=== PATIENT | female | born 1960 | race Caucasian/White ===

== ENCOUNTER → 2016-06-28 | Outpatient (CLI) | payer MEDICARE ==
[2016-06-28 11:45] LABS: HEMATOCRIT 41.8 % (36.0-47.0); HEMOGLOBIN 13.7 g/dL (12.0-15.5); HGB HCT DIFFERENCE -0.7; MEAN CORPUSCULAR HEMOGLOBIN 30.5 pg (27.0-33.4); MEAN CORPUSCULAR HGB CONC 32.9 g/dL (32.0-36.0); MEAN CORPUSCULAR VOLUME 93 fl (80-97); RED CELL DISTRIBUTION WIDTH 15.2 % (11.5-14.0); WHITE BLOOD COUNT 19.7 10^3/uL (4.0-10.5)
[2016-06-28 12:08] LABS: ALANINE AMINOTRANSFERASE 50 U/L (9-52); ALBUMIN 3.8 g/dL (3.5-5.0); ALKALINE PHOSPHATASE 109 U/L (38-126); ANION GAP 16 (5-19); ASPARTATE AMINO TRANSFERASE 28 U/L (14-36); BILIRUBIN,DIRECT 0.3 mg/dL (0.0-0.4); BILIRUBIN,TOTAL 0.4 mg/dL (0.2-1.3); BLOOD UREA NITROGEN 12 mg/dL (7-20); CALCIUM 10.1 mg/dL (8.4-10.2); CARBON DIOXIDE 24 mmol/L (22-30); CHLORIDE 102 mmol/L (98-107); CREATININE RESULT 0.66 mg/dL (0.52-1.25); GLUCOSE 143 mg/dL (75-110); POTASSIUM 3.3 mmol/L (3.6-5.0); SODIUM 142.3 mmol/L (137-145)
[2016-06-28 12:26] LABS: BASOPHILS % (MANUAL) 0 % (0-2); EOSINOPHILS % (MANUAL) 0 % (0-6); LYMPHOCYTES % (MANUAL) 1 % (13-45); TOTAL CELLS COUNTED 100
[2016-06-28 12:27] LABS: ANISOCYTOSIS SLIGHT; OVALOCYTES 1+; POIKILOCYTOSIS 1+; TEAR DROP CELLS 1+
--- NOTE | 2016-06-28 12:38 | RADIOLOGY REPORT (SQ) ---
EXAM DESCRIPTION: CHEST PA/LATERAL COMPLETED DATE/TIME: 06/28/2016 12:02 pm REASON FOR STUDY: PRE OP COMPARISON: None EXAM PARAMETERS: NUMBER OF VIEWS: two views TECHNIQUE: Digital Frontal and Lateral radiographic views of the chest acquired. RADIATION DOSE: NA LIMITATIONS: none FINDINGS: LUNGS AND PLEURA: The lungs are hyperexpanded. Chronic interstitial changes are present. There is no pulmonary infiltrate or pleural effusion. Questionable ground-glass nodules are seen in the left lung. A each of these overlies bony structures and these are not seen on the lateral view. MEDIASTINUM AND HILAR STRUCTURES: No masses or contour abnormalities. HEART AND VASCULAR STRUCTURES: Heart normal size. No evidence for failure. BONES: No acute findings. HARDWARE: None in the chest. OTHER: No other significant finding. IMPRESSION: 1. Chronic lung changes with no acute cardiopulmonary disease. 2. Questionable left pulmonary nodules versus superimposed osseous structures. TECHNICAL DOCUMENTATION: JOB ID: [id number] [employer]- All Rights Reserved
== END ==
LOC: OD 10:22
PROVIDERS: ATTEND Nurse Practitioner Family
DX: R05 Cough (principal)
CPT/HCPCS: 36415; 71020; 80053; 85025; 87040

== ENCOUNTER → 2016-08-22 | Outpatient (CLI) | payer MEDICARE ==
--- NOTE | 2016-08-22 14:43 | RADIOLOGY REPORT (SQ) ---
EXAM DESCRIPTION: CT CHEST WITHOUT COMPLETED DATE/TIME: 08/22/2016 1:05 pm REASON FOR STUDY: ABN CXR WITH MULTIPLE PULM NODULES (R91.8) R91.8 OTHER NONSPECIFIC ABNORMAL FINDI NG OF LUNG FIELD COMPARISON: None. TECHNIQUE: CT scan performed of the chest without intravenous contrast. Images reviewed with lung, soft tissue and bone windows. Reconstructed coronal and sagittal MPR images reviewed. All images st ored on PACS. All CT scanners at this facility use dose modulation, iterative reconstruction, and/or weight based d osing when appropriate to reduce radiation dose to as low as reasonably achievable (ALARA). [facility]: Dose Right [facility]: CareDose [facility]: Dose Right [facility]: Teradose 4D [facility]: [employer] Technologies RADIATION DOSE: Up-to-date CT equipment and radiation dose reduction techniques were employed. CTDIv ol: 3.2 mGy. DLP: 127 mGy-cm. mGy. LIMITATIONS: No technical limitations. FINDINGS: LUNGS AND PLEURA: At the left lung apex, a 13 mm ground-glass opacity is present on axial image 22, coronal image 44, and sagittal image 44. Remainder of the lung parenchyma is free of focal infiltrates. No solid pulmonary nodules. No pleur al effusion or pneumothorax. HILAR AND MEDIASTINAL STRUCTURES: No identified masses or abnormal nodes. No obvious aneurysm. HEART AND VASCULAR STRUCTURES: The ascending aorta is 4 cm in greatest transverse diameter. This cou ld be seen in aortic insufficiency or aortic stenosis. UPPER ABDOMEN: No significant findings. Limited exam. THYROID AND OTHER SOFT TISSUES: No masses. No adenopathy. BONES: There is abnormal bony sclerosis in the medial left clavicle, and anterior aspect of the ham[place] um. Focal sclerosis in the upper half of the T12 vertebral body. Consider bone scan for followup. These lesions are abnormal but nonspecific, metastatic disease could not entirely be excluded. HARDWARE: None in the chest. OTHER: No other significant findings. IMPRESSION: 13 mm ground-glass opacity left lung apex. Abnormal bony sclerosis in the left clavicular head, sternum, and T12 vertebral body. Metastatic dis ease could not be excluded. Consider correlation with bone scan COMMENT: Fleischner Criteria for Ground Glass Nodules: >6mm ground glass single nodule: CT 6-12 mo, then CT every 2 yr until 5 yr TECHNICAL DOCUMENTATION: JOB ID: [id number] Quality ID # [id number]: Final reports with documentation of one or more dose reduction techniques (e.g., Au tomated exposure control, adjustment of the mA and/or kV according to patient size, use of iterative reconstruction technique) 2010 [employer]- All Rights Reserved
== END ==
LOC: RAD 12:41
PROVIDERS: ATTEND Internal Medicine Pulmonary Disease
DX: R91.8 Other nonspecific abnormal finding of lung field (principal)
CPT/HCPCS: 71250

== ENCOUNTER → 2016-09-15 | Outpatient (CLI) | payer MEDICARE ==
--- NOTE | 2016-09-15 15:50 | RADIOLOGY REPORT (SQ) ---
EXAM DESCRIPTION: NM WHOLE BODY BONE SCAN COMPLETED DATE/TIME: 09/15/2016 2:36 pm REASON FOR STUDY: DISORDER OF BONE, UNSPEC (M89.9) M89.9 DISORDER OF BONE, UNSPECIFIED COMPARISON: No available imaging studies for comparison. RADIONUCLIDE AND DOSE: 20 millicuries Tc99m MDP. The route of agent administration: Intravenous. ADDITIONAL DRUGS AND DOSES: None. TECHNIQUE: Routine delayed images at 3 hours post radionuclide injection acquired of the bony skelet on including anterior and posterior whole-body projections and additional focused images as needed. LIMITATIONS: None. FINDINGS: BONES: There is mild increased uptake in the cervical spine. There is mild uptake at the lumbosacral junction. There is increased uptake in both wrists. These areas are felt to be degenera tive. No abnormal skeletal uptake is seen to suggest metastatic disease to bone KIDNEYS: Symmetric excretion without obstruction. OTHER: No other significant finding. IMPRESSION: There are areas of mild degenerative uptake. There is no evidence of metastatic disease to bone. COMMENT: PQRS 3570F: Current bone scan is compared with any available plain radiographs, prior bone scans, and CT/MRI. TECHNICAL DOCUMENTATION: JOB ID: [id number] [employer]- All Rights Reserved
== END ==
LOC: RAD 09:38
PROVIDERS: ATTEND Internal Medicine Pulmonary Disease
DX: M89.9 Disorder of bone, unspecified (principal)
CPT/HCPCS: 78306; A9561; Q9969

== ENCOUNTER 2017-05-27 15:24 | Emergency (ER) | payer MEDICARE, MEDICAID ==
[2017-05-27 15:30] VITALS: BP 182/83
[2017-05-27] MEDS ORDERED: METOCLOPRAMIDE HCL INJ/PF 10 MG/2 ML SDV IV ONE (16:17)
[2017-05-27] MEDS ORDERED: DIPHENHYDRAMINE HCL 50 MG/ML VIAL IV ONE (16:17)
[2017-05-27] MEDS ORDERED: NORMAL SALINE 1000 ML 1,000 ML IV ONE (16:29)
--- NOTE | 2017-05-27 16:30 | ER Document Report ---
ED Medical Screen (RME) - General Chief Complaint: Headache Stated Complaint: HEADACHE Time Seen by Provider: 05/27/17 16:15 Notes: RME DISCLOSURE I have seen this patient as part of a Rapid Medical Evaluation and, if applicable, placed any initially appropriate orders. The patient will be seen and fully evaluated, including a full history and physical exam, by a provider ( in Main ED or Fast Track) when a room becomes available. 56-year-old female PMH migraines several times monthly here with complaints of headache behind the left eye nonradiating with associated nausea but no vomiting. Headache is worse with light and sound. She has not had any numbness tingling weakness. States this is her typical headache that she has had "ever since it was a little girl". She has tried ibuprofen Fioricet with minimal relief. TRAVEL OUTSIDE OF THE [place] IN LAST 30 DAYS: No - Related Data Allergies/Adverse Reactions: No Known Allergies Allergy (Verified 05/27/17 15:25) Past Medical History - Social History Chew tobacco use (# tins/day): No Frequency of alcohol use: None Drug Abuse: None Renal/ Medical History: Denies: Hx Peritoneal Dialysis Physical Exam - Vital signs Vitals: Temp Pulse Resp BP Pulse Ox 98.1 F 60 14 182/83 H 98 05/27/17 15:29 05/27/17 15:29 05/27/17 15:29 05/27/17 15:29 05/27/17 15:29 Course - Vital Signs Vital signs: Temp Pulse Resp BP Pulse Ox 98.1 F 60 14 182/83 H 98 05/27/17 15:29 05/27/17 15:29 05/27/17 15:29 05/27/17 15:29 05/27/17 15:29
[2017-05-27] MEDS ORDERED: KETOROLAC TROMETHAMINE INJ/PF 30 MG/1 ML SDV IV ONE (18:10)
--- NOTE | 2017-05-27 18:15 | ER Document Report ---
ED General - General Mode of Arrival: Ambulatory Information source: Patient TRAVEL OUTSIDE OF THE [place] IN LAST 30 DAYS: No - General Chief Complaint: Headache Stated Complaint: HEADACHE Time Seen by Provider: 05/27/17 16:15 Notes: Patient is a 56-year-old female with a history of migraines, rheumatoid arthritis, hypertension and glaucoma presents to the emergency department complaining of a headache onset 2 days ago. Patient describes her headache as non-radiating located frontally behind her left eye. Patient states that every few years she has a migraine that would send her to the hospital. Patient states that her symptoms are similar to her previous migraines. At bedside patient states she feels better after receiving Reglan, Benadryl and normal saline. Patient is currently taking Prednisone, Methotrexate and Humira shots to combat her rheumatoid arthritis. (BRITTANY SHEEHAN) - Related Data Allergies/Adverse Reactions: No Known Allergies Allergy (Verified 05/27/17 15:25) Past Medical History - General Information source: Patient - Social History Smoking Status: Current Every Day Smoker Cigarette use (# per day): Yes - 10 cigs per day Chew tobacco use (# tins/day): No Frequency of alcohol use: None Drug Abuse: None Family History: Reviewed & Not Pertinent Patient has suicidal ideation: No Patient has homicidal ideation: No Review of Systems - Review of Systems Constitutional: No symptoms reported EENT: No symptoms reported Cardiovascular: No symptoms reported Respiratory: No symptoms reported Gastrointestinal: No symptoms reported Genitourinary: No symptoms reported Female Genitourinary: No symptoms reported Musculoskeletal: No symptoms reported Skin: No symptoms reported Hematologic/Lymphatic: No symptoms reported Neurological/Psychological: See HPI, Headaches -: Yes All other systems reviewed and negative Physical Exam - General General appearance: Appears well, Alert, Other - photophobic - HEENT Head: Normocephalic, Atraumatic Mucous membranes: Normal Neck: Normal - Respiratory Respiratory status: No respiratory distress Chest status: Nontender Breath sounds: Normal Chest palpation: Normal - Cardiovascular Rhythm: Regular Heart sounds: Normal auscultation Murmur: No Friction rub: No Gallop: None auscultated - Abdominal Inspection: Normal Distension: No distension Bowel sounds: Normal Tenderness: Nontender Organomegaly: No organomegaly - Back Back: Normal - Extremities General upper extremity: Normal ROM General lower extremity: Normal ROM - Neurological Neuro grossly intact: Yes Cognition: Normal Orientation: AAOx4 Stephany Coma Scale Eye Opening: Spontaneous [place] Coma Scale Verbal: Oriented [place] Coma Scale Motor: Obeys Commands Stephany Coma Scale Total: 15 Speech: Normal - Psychological Associated symptoms: Normal affect, Normal mood - Skin Skin Temperature: Warm Skin Moisture: Dry Skin Color: Normal - Vital signs Vitals: Temp Pulse Resp BP Pulse Ox 98.1 F 60 14 182/83 H 98 05/27/17 15:29 05/27/17 15:29 05/27/17 15:29 05/27/17 15:29 05/27/17 15:29 Course - Re-evaluation Re-evalutation: 05/27/17 19:31 Patient reports that after the Toradol, her headache is considerably better although it had improved a good bit after the Benadryl and Reglan. At this time she is smiling and anxious to go home. (IBAN EASON) - Vital Signs Vital signs: Temp Pulse Resp BP Pulse Ox 98.1 F 60 14 182/83 H 98 05/27/17 15:29 05/27/17 15:29 05/27/17 15:29 05/27/17 15:29 05/27/17 15:29 Discharge - Discharge Clinical Impression: Migraine headache Qualifiers: Migraine type: unspecified Status migrainosus presence: without status migrainosus Intractability: not intractable Qualified Code(s): G43.909 - Migraine, unspecified, not intractable, without status migrainosus High blood pressure Qualifiers: Hypertension type: essential hypertension Qualified Code(s): I10 - Essential ( primary) hypertension Condition: Stable Disposition: HOME, SELF-CARE Additional Instructions: Migraine Headache The physician feels that your symptoms are due to a migraine attack. Migraines are caused by changes in the blood vessels of the head. Arteries go into spasm, often causing warning symptoms that a headache may begin soon. As the spasm goes away, the vessels dilate and throb, causing the pounding pain of a migraine headache. Migraines often cause nausea and vomiting. The treatment of headaches varies with severity and cause of pain. Not all headaches need pain shots -- in fact, there is evidence that using narcotics for headaches may make them worse in the long run. The physician will determine the therapy that's in your best interest for this particular headache. Medications are available that may prevent migraines, or stop them as they first occur. If one medication is not helpful, try another. If migraines are frequent, be patient -- follow the doctor's recommendations. Call the physician if you are worsening, or if new symptoms arise. High Blood Pressure When your blood pressure was taken today it was elevated. Sometimes, stress or illness causes a temporary elevation of your blood pressure. Be sure to take your blood pressure medications as prescribed. Check your blood pressure at home and if it remains elevated, be sure to follow-up with your primary care provider for medication adjustments if needed. Tashaibe Attestation: 05/27/17 19:43 I personally performed the services described in the documentation, reviewed and edited the documentation which was dictated to the scribe in my presence, and it accurately records my words and actions. (IBAN EASON) Tashaibe Documentation - Scribe Written by Ian:: Ian Beebe, 05/27/2017 18:18 acting as scribe for :: [place]
== END 2017-05-27 20:34 | disposition home or self-care (01) ==
LOC: ER 15:24
DX: G43.909 Migraine, unspecified, not intractable, without status migrainosus (principal); I10 Essential (primary) hypertension; F17.210 Nicotine dependence, cigarettes, uncomplicated
CPT/HCPCS: 99284; 96361; 96374; 96375; J1200; J1885; J2765; J7030

== ENCOUNTER → 2018-07-05 | Outpatient (CLI) | payer MEDICAID, MEDICARE ==
--- NOTE | 2018-07-05 13:37 | WOMENS IMAGING REPORT ---
EXAM DESCRIPTION: U/S THYROID/ST TIS HEAD NECK COMPLETED DATE/TIME: 07/05/2018 1:22 pm REASON FOR STUDY: Z12.31 ROUTINE BILATERAL SCREENING, E04.2 MULTIPLE THYROID NODULES Z12.31 ENCNTR SCREEN MAMMOGRAM FOR MALIGNANT NEOPLASM OF ROGER E04.2 NONTOXIC MULTINODULAR GOITER COMPARISON: None. TECHNIQUE: Dynamic and static garcia-scale images acquired of the thyroid gland. Selected additional c olor/power Doppler images recorded. All images stored to PACS. LIMITATIONS: None. FINDINGS: RIGHT LOBE: The right lobe of the thyroid gland measures 4.2 x 1.9 x 2.0 cm, normal size. Several nodules are identified. One of the largest nodules which is complex in appearance, is loca allyson in the upper--mid pole measures 2.8 x 1.2 x 2.0 cm. Blood flow demonstrated. LEFT LOBE: The left lobe of the thyroid gland measures 4.1 x 1.51.8 cm, normal size. Several nodule s are present. One of the largest in the is noted in the upper mid pole which measures 0.7 x 0.5 x 1 .0 cm. ISTHMUS: The isthmus measures 1.9 mm in AP diameter, normal size. Homogeneous echotexture. No cysti c or solid masses. OTHER: No other significant finding. IMPRESSION: 1. Multinodular thyroid gland, with the dominant nodule identified on the right. TECHNICAL DOCUMENTATION: JOB ID: [id number] [employer]- All Rights Reserved Reading location - IP/workstation name: [email or web address]
--- NOTE | 2018-07-05 13:57 | WOMENS IMAGING REPORT ---
EXAM DESCRIPTION: BILAT SCREENING MAMMO W/CAD COMPLETED DATE/TIME: 07/05/2018 1:20 pm REASON FOR STUDY: Z12.31 ROUTINE BILATERAL SCREENING Z12.31 ENCNTR SCREEN MAMMOGRAM FOR MALIGNANT N EOPLASM OF ROGER E04.2 NONTOXIC MULTINODULAR GOITER COMPARISON: 2017 EXAM PARAMETERS: Standard craniocaudal and mediolateral oblique views of each breast recorded using digital acquisition. Read with the assistance of CAD. .[facility] - [place] [employer] Tender Version 9.2 LIMITATIONS: None. FINDINGS: No suspicious masses, suspicious calcifications or architectural distortion. No areas of s uspicion. IMPRESSION: ASSESSMENT: Negative MAMMOGRAM. BIRADS 1 BREAST DENSITY: c. The breasts are heterogeneously dense, which may obscure small masses. BIRAD: 1 NEGATIVE RECOMMENDATION: ROUTINE SCREENING COMMENT: The patient has been notified of the results by letter per MQSA requirements. Additional no tification policies are in place for contacting patient with suspicious or incomplete findings. Quality ID #[id number]: The [employer] recommends an annual screening mammogram for women aged 40 years or over. This facility utilizes a reminder system to ensure that all patients receive reminder letters, and/or direct phone calls for appointments. This includes reminders for routine scr eening mammograms, diagnostic mammograms, or other Breast Imaging Interventions when appropriate. Th is patient will be placed in the appropriate reminder system. TECHNICAL DOCUMENTATION: FINDING NUMBER: (1) ASSESSMENT: (1) JOB ID: [id number] [employer]- All Rights Reserved Reading location - IP/workstation name: [email or web address]
== END ==
LOC: WI 12:56
PROVIDERS: ATTEND Family Medicine
DX: Z12.31 Encounter for screening mammogram for malignant neoplasm of breast (principal); E04.2 Nontoxic multinodular goiter
CPT/HCPCS: 76536; 77067

== ENCOUNTER → 2019-04-10 | Outpatient (CLI) | payer MEDICAID, MEDICARE ==
--- NOTE | 2019-04-10 17:07 | RADIOLOGY REPORT (SQ) ---
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 Selected additional c olor/power Doppler images recorded. All images stored to PACS. LIMITATIONS: None. FINDINGS: RIGHT LOBE: Normal size. Homogeneous echotexture. In the right midpole gland, a thyroid mass is present, 2.8 x 1.6 x 1.4 cm in size, unchanged essentially from 07/05/2018. This mass is mixe d cystic and solid, hyperechoic, wider than tall, with smooth margins and no calcifications (TI-RADS 2). LEFT LOBE: Normal size. Homogeneous echotexture. In the left mid pole gland a stable thyroid nodule is present, 9 x 4 x 5 mm in size. Nodule is spongiform, hypoechoic, wider than tall, with ill-defin ed margins and no echogenic foci (TI-RADS 3 lesion) ISTHMUS: Normal size. Homogeneous echotexture. No cystic or solid masses. OTHER: No other significant finding. IMPRESSION: Stable right lobe thyroid TI-RADS 2 nodule, 2.8 cm in greatest length Stable left lobe thyroid TI-RADS 3 nodule, less than 1 cm in size COMMENT: The [employer] (ACR) Thyroid Imaging Reporting And Data System (TI-RADS ) is an ultrasound feature based summed scoring system of risk categorization and management recommen dations for thyroid nodules. TI-RADS assessment categories are as follows: 0 - Incomplete exam: Additional imaging or comparison to prior examinations recommended. 1. - Benign: Fine-needle aspiration or follow-up not routinely recommended in the absence of clinical change. 2. - Not suspicious: Fine-needle aspiration or follow-up not routinely recommended in the absence of clinical change. 3. - Mildly suspicious: Fine-needle aspiration recommended if greater than or equal to 2.5 cm in size . Ultrasound follow-up recommended if greater than or equal to 1.5 cm in size. 4. - Moderately suspicious: Fine-needle aspiration recommended if greater than or equal to 1.5 cm in size. Ultrasound follow-up recommended if greater than or equal to 1.0 cm in size. 5. - Highly suspicious: Fine-needle aspiration recommended if greater than or equal to 1.0 cm in size . Ultrasound follow-up recommended if greater than or equal to 0.5 cm in size. TECHNICAL DOCUMENTATION: JOB ID: [id number] [employer]- All Rights Reserved Reading location - IP/workstation name: [email or web address]
== END ==
LOC: RAD 15:24
PROVIDERS: ATTEND Family Medicine
DX: E04.2 Nontoxic multinodular goiter (principal)
CPT/HCPCS: 76536